=== PATIENT | female | born 2000 | race Caucasian/White ===

== ENCOUNTER 2019-03-09 00:01 | Emergency (ER) | payer BC, OTHER ==
[2019-03-09] MEDS ORDERED: ONDANSETRON HCL 4 MG TAB.RAPDIS ONE (01:19)
[2019-03-09] MEDS ORDERED: IBUPROFEN 400 MG TABLET PO ONE (01:19)
[2019-03-09] MEDS ORDERED: MAG HYDROX/ALUMINUM HYD/SIMETH 30 ML UDC PO ONE (01:19)
== END 2019-03-09 01:52 | disposition home or self-care (01) ==
LOC: ED 00:01
DX: K21.9 Gastro-esophageal reflux disease without esophagitis (principal); R11.0 Nausea
CPT/HCPCS: 87880; 99283; A9270; A9270-GY